=== PATIENT | female | born 1980 | race Asian ===

== ENCOUNTER 2016-11-22 06:29 | Emergency (ER) | payer SELFPAY ==
[~2016-11-22] VITALS: Ht 157.5 cm; Wt 60.8 kg
--- NOTE | 2016-11-22 06:40 | NUR ---
To bed 5 36 yo female patient bb sister with c/o "found lump on left breast. painful." Patient is aaox4, nad noted. vss, breathing even and unlabored. afebrile. gowned. comfort measures rendered. Awaiting for er md reid.
--- NOTE | 2016-11-22 06:45 | NUR ---
Dr Zambrano at bedside to eval patient.
--- NOTE | 2016-11-22 08:02 | NUR ---
Patient discharged to home in stable condition. Written and verbal after care instructions given. Patient verbalizes understanding of instruction.
[2016-11-22 08:03] VITALS: BP 118/84
== END 2016-11-22 08:03 | disposition home or self-care (01) ==
LOC: ER 06:29
DX: N63.20 Unspecified lump in the left breast, unspecified quadrant (principal); Z88.6 Allergy status to analgesic agent
CPT/HCPCS: 71010; 84703; 99283; A4606; Z7610